=== PATIENT | female | born 1960 | race Caucasian/White ===

== ENCOUNTER 2019-04-21 16:19 | Emergency (ER) | payer SELFPAY ==
[2019-04-21] MEDS ORDERED: METHYLPREDNISOLONE 125 MG INJ ONE (17:26)
[2019-04-21] MEDS ORDERED: LEVALBUTEROL 1.25 MG/3 ML NEB ONE (17:26)
[2019-04-21] MEDS ORDERED: MAGNESIUM SULFATE 1 gm IVPB 1 GM/100 ML BAG IV ONE (17:26)
--- NOTE | 2019-04-21 18:42 | RAD REPORT ---
EXAM DESCRIPTION: [place] Single View04/21/2019 5:15 pm CLINICAL HISTORY: sob COMPARISON: none FINDINGS: Mild to moderate bilateral interstitial lung opacities suspected. Lungs are hyperaerated Small calcified granulomas are suspected. The heart is normal size IMPRESSION: Mild to moderate bilateral interstitial lung opacities may indicate an atypical pneumoni a or pneumonitis Follow-up chest x-ray would be helpful to assess interval clearing of the lung opacities
--- NOTE | 2019-04-21 18:50 | ER ---
Nurse's Notes [facility] Name: Julianna Holland Age: 59 yrs Sex: Female : 1960 Arrival Date: 04/21/2019 Time: 16:24 Bed 18 Private MD: Diagnosis: Wheezing;Other pneumonia, unspecified organism Presentation: 04/21 16:28 Presenting complaint: SOB, productive cough with yellowish sputum, subjective fever, hb wheezing, chills, fatigue, loss of appetite, body aches, headache x 1 week. Transition of care: patient was not received from another setting of care. Onset of symptoms was April 14, 2019. Risk Assessment: Do you want to hurt yourself or someone else? Patient reports no desire to harm self or others. Care prior to arrival: Medication(s) given: OTC Cold and Flu. 16:28 Method Of Arrival: Ambulatory hb 16:28 Acuity: MORGAN 3 hb 17:00 Initial Sepsis Screen: Does the patient meet any 2 criteria? No. Patient's initial bp sepsis screen is negative. Does the patient have a suspected source of infection? No. Patient's initial sepsis screen is negative. Triage Assessment: 16:35 General: Appears in no apparent distress. comfortable, Behavior is cooperative, bp appropriate for age, anxious. Pain: Denies pain. EENT: Reports nasal congestion. Neuro: No deficits noted. Cardiovascular: No deficits noted. Respiratory: Reports cough that is. GI: No signs and/or symptoms were reported involving the gastrointestinal system. : No signs and/or symptoms were reported regarding the genitourinary system. Derm: No deficits noted. Musculoskeletal: No deficits noted. Historical: - Allergies: 16:32 Codeine; hb 16:32 PENICILLINS; hb - Home Meds: 16:32 unknown HTN medication [Active]; hb - PMHx: 16:32 Hypertension; hb - Immunization history:: Adult Immunizations up to date. - Social history:: Smoking status: Patient uses tobacco products, smokes one-half pack cigarettes per day. - Ebola Screening: : No symptoms or risks identified at this time. - Family history:: not pertinent. - Hospitalizations: : No recent hospitalization is reported. Screenin:40 Abuse screen: Denies threats or abuse. Denies injuries from another. Nutritional bp screening: No deficits noted. Tuberculosis screening: No symptoms or risk factors identified. Fall Risk None identified. Assessment: 16:35 General: SEE TRIAGE NOTE. bp 18:00 Reassessment: ALL CURRENT ORDERS COMPLETED, PT EXPRESSES RELIEF OF S/S. bp 19:08 Reassessment: PT D/C HOME AMBULATORY WITH FAMILY, DX WITH COPD. bp Vital Signs: 16:30 BP 108 / 68; Pulse 106; Resp 24; Temp 97.8; Pulse Ox 95% on R/A; Weight 51.71 kg; hb Height 5 ft. 2 in. (157.48 cm); Pain 8/10; 17:42 BP 164 / 74; Pulse 88; Resp 20; Temp 97.9(O); Pulse Ox 100% ; mh5 19:00 BP 155 / 69; Pulse 85; Resp 20; Temp 97.8; Pulse Ox 96% ; bp 16:30 Body Mass Index 20.85 (51.71 kg, 157.48 cm) hb ED Course: 16:24 Patient arrived in ED. mr 16:30 Triage completed. hb 16:30 Arm band placed on. hb 16:39 Arsenio Resendiz, RN is Primary Nurse. bp 16:40 Patient has correct armband on for positive identification. Bed in low position. Call bp light in reach. Side rails up X2. 16:53 Keenan Negro MD is Attending Physician. rn 17:15 XRAY Chest (1 view) In Process Unspecified. EDMS 17:18 Flu and/or RSV swab sent to lab. mh5 17:18 Flu Sent. mh5 17:20 Inserted saline lock: 20 gauge in right forearm, using aseptic technique. bp 18:48 Wing Young MD is Referral Physician. rn 19:00 No provider procedures requiring assistance completed. IV discontinued, intact, bp bleeding controlled, No redness/swelling at site. Pressure dressing applied. Administered Medications: 17:20 Drug: SOLU-Medrol 125 mg Route: IVP; Site: right forearm; bp 18:12 Follow up: Response: Pain is decreased bp 17:20 Drug: Xopenex (3) 1.25 mg Route: Inhalation; bp 17:20 Drug: Magnesium Sulfate 1 grams Route: IVPB; Infused Over: 1 hrs; Site: right forearm; bp 19:07 Follow up: IV Status: Completed infusion; IV Intake: 100ml bp 18:59 Drug: LevaQUIN 750 mg Route: PO; rr5 19:08 Follow up: Response: Medication administered at discharge. bp Intake: 19:07 IV: 100ml; Total: 100ml. bp Outcome: 18:49 Discharge ordered by . rn 19:09 Discharged to home ambulatory, with family. bp 19:09 Condition: stable 19:09 Discharge instructions given to patient, Instructed on discharge instructions, follow up and referral plans. medication usage, Demonstrated understanding of instructions, follow-up care, medications, Prescriptions given X 3. 19:10 Patient left the ED. bp Signatures: Dispatcher [employer] [facility] Leny MazaKeenan MD MD rn Baxter, Heather, RN RN April Clark [facility] Arsenio Resendiz RN RN Raghu Harris RN RN rr5 Corrections: (The following items were deleted from the chart) 16:32 16:28 Care prior to arrival: Medication(s) given: hb hb 16:33 16:30 BP 108 / 68; Pulse 106bpm; Resp 20bpm; Pulse Ox 96% RA; Temp 97.8F; 51.71 kg; hb Height 5 ft. 2 in.; BMI: 20.8; Pain 8/10; hb
--- NOTE | 2019-04-21 18:50 | EDPHYS ---
Physician Documentation [facility] Name: Julianna Holland Age: 59 yrs Sex: Female : 1960 Arrival Date: 04/21/2019 Time: 16:24 Bed 18 Private MD: ED Physician Keenan Negro HPI: 04/21 18:40 This 59 yrs old Female presents to ER via Ambulatory with complaints of Flu rn Symptoms. 18:40 The patient or guardian reports cough. Onset: The symptoms/episode began/occurred 2 rn day(s) ago. Severity of symptoms: At their worst the symptoms were mild, in the emergency department the symptoms are unchanged. Modifying factors: The symptoms are alleviated by nothing, the symptoms are aggravated by exertion. The patient has not experienced similar symptoms in the past. Reports flu like symptoms, cough, has been smoking for decades, still smokes, no trauma, reports fever/chills/hemoptysis. + wheezing and sob. Denies hx of COPD. Does not use inhalers. . Historical: - Allergies: 16:32 Codeine; hb 16:32 PENICILLINS; hb - Home Meds: 16:32 unknown HTN medication [Active]; hb - PMHx: 16:32 Hypertension; hb - Immunization history:: Adult Immunizations up to date. - Social history:: Smoking status: Patient uses tobacco products, smokes one-half pack cigarettes per day. - Ebola Screening: : No symptoms or risks identified at this time. - Family history:: not pertinent. - Hospitalizations: : No recent hospitalization is reported. ROS: 18:40 Constitutional: + fever and subjective chills Eyes: Negative for injury, pain, redness, rn and discharge, Cardiovascular: Negative for chest pain, palpitations, and edema, Respiratory: + cough and sob Abdomen/GI: + diarrhea MS/Extremity: Negative for injury and deformity, Skin: Negative for injury, rash, and discoloration, Neuro: Negative for headache, numbness, tingling, and seizure. Exam: 18:40 Constitutional: This is a well developed, well nourished patient who is awake, alert, rn and in no acute distress. Head/Face: Normocephalic, atraumatic. ENT: dry MM, no stridor or swelling Cardiovascular: Regular rate and rhythm. No pulse deficits. Respiratory: + mild tachypnea, + faint upper lobe bilateral wheezing Abdomen/GI: soft, non-tender MS/ Extremity: Pulses equal, no cyanosis. Neurovascular intact. Full, normal range of motion. Equal circumference. Neuro: Awake and alert, GCS 15, oriented to person, place, time, and situation. Cranial nerves II-XII grossly intact. Motor strength 5/5 in all extremities. Sensory grossly intact. Cerebellar exam normal. Vital Signs: 16:30 BP 108 / 68; Pulse 106; Resp 24; Temp 97.8; Pulse Ox 95% on R/A; Weight 51.71 kg; hb Height 5 ft. 2 in. (157.48 cm); Pain 8/10; 17:42 BP 164 / 74; Pulse 88; Resp 20; Temp 97.9(O); Pulse Ox 100% ; mh5 19:00 BP 155 / 69; Pulse 85; Resp 20; Temp 97.8; Pulse Ox 96% ; bp 16:30 Body Mass Index 20.85 (51.71 kg, 157.48 cm) hb MDM: 16:53 Patient medically screened. rn 18:40 Differential Diagnosis: Bronchitis Influenza Upper Respiratory Infection Viral Syndrome rn Pneumonia. Data reviewed: vital signs, nurses notes, lab test result(s), radiologic studies, and as a result, I will discharge patient. Test interpretation: by ED physician or midlevel provider: plain radiologic studies, CXR with hyperinflation and interstitial infiltrates.. Counseling: I had a detailed discussion with the patient and/or guardian regarding: the historical points, exam findings, and any diagnostic results supporting the discharge/admit diagnosis, lab results, radiology results, the need for outpatient follow up, to return to the emergency department if symptoms worsen or persist or if there are any questions or concerns that arise at home. Response to treatment: the patient's symptoms have markedly improved after treatment, and as a result, I will discharge patient. Special discussion: I discussed with the patient/guardian in detail that at this point there is no indication for admission to the hospital. It is understood, however, that if the symptoms persist or worsen the patient needs to return immediately for re-evaluation. Based on the history and exam findings, there is no indication for further emergent testing or inpatient evaluation. I discussed with the patient/guardian the need to see the roll forming supervisor for further evaluation of the symptoms. ED course: Patient improved, urged to f/u with pulmonology for pulmonary function testing. Will dc home with steroids/inhaler/zithromax given likely COPD with acute infection.. 04/21 17:09 Order name: Flu; Complete Time: 18:14 rn 04/21 16:53 Order name: XRAY Chest (1 view); Complete Time: 18:49 rn 04/21 17:09 Order name: IV Start; Complete Time: 17:37 rn Administered Medications: 17:20 Drug: SOLU-Medrol 125 mg Route: IVP; Site: right forearm; bp 18:12 Follow up: Response: Pain is decreased bp 17:20 Drug: Xopenex (3) 1.25 mg Route: Inhalation; bp 17:20 Drug: Magnesium Sulfate 1 grams Route: IVPB; Infused Over: 1 hrs; Site: right forearm; bp 19:07 Follow up: IV Status: Completed infusion; IV Intake: 100ml bp 18:59 Drug: LevaQUIN 750 mg Route: PO; rr5 19:08 Follow up: Response: Medication administered at discharge. bp Disposition: 04/21/19 18:49 Discharged to Home. Impression: Wheezing, Other pneumonia, unspecified organism. - Condition is Stable. - Discharge Instructions: Chronic Obstructive Pulmonary Disease, How to Use an Inhaler, Community-Acquired Pneumonia, Adult. - Prescriptions for Levaquin 750 mg Oral Tablet - take 1 tablet by ORAL route once daily for 10 days; 10 tablet. Prednisone 20 mg Oral Tablet - take 3 tablet by ORAL route once daily for 5 days; 15 tablet. Albuterol Sulfate 90 mcg/actuation - inhale 1-2 puff by INHALATION route every 4-6 hours; 1 Inhaler. - Medication Reconciliation Form, Thank You Letter, Antibiotic Education, Prescription Opioid Use form. - Follow up: Wing Young MD; When: As needed; Reason: Recheck today's complaints, Re-evaluation by your physician. - Problem is new. - Symptoms have improved. Signatures: Dispatcher [employer] EDMS Keenan Negro MD MD rn Baxter, Heather, RN RN hb Peltier, Brian, RN RN Raghu Harris RN RN rr5 Corrections: (The following items were deleted from the chart) 18:44 18:40 Constitutional: + fever and subjective chills Eyes: Negative for injury, pain, rn redness, and discharge, Cardiovascular: Negative for chest pain, palpitations, and edema, Respiratory: + cough and sob Abdomen/GI: + diarrhea MS/Extremity: Negative for injury and deformity, Skin: Negative for injury, rash, and discoloration, Neuro: Negative for headache, weakness, numbness, tingling, and seizure, rn 18:50 18:40 Test interpretation: by ED physician or midlevel provider: plain radiologic rn studies, CXR without acute infiltrate/pneumonia, + hyperinflation, rn 18:51 18:49 04/21/2019 18:49 Discharged to Home. Impression: Wheezing. Condition is Stable. rn Forms are Medication Reconciliation Form, Thank You Letter, Antibiotic Education, Prescription Opioid Use. Follow up: Wing Young; When: As needed; Reason: Recheck today's complaints, Re-evaluation by your physician. Problem is new. Symptoms have improved. rn 19:10 18:51 04/21/2019 18:49 Discharged to Home. Impression: Wheezing; Other pneumonia, bp unspecified organism. Condition is Stable. Forms are Medication Reconciliation Form, Thank You Letter, Antibiotic Education, Prescription Opioid Use. Follow up: Wing Young; When: As needed; Reason: Recheck today's complaints, Re-evaluation by your physician. Problem is new. Symptoms have improved. rn
[2019-04-21] MEDS ORDERED: levoFLOXacin 750 MG TAB ONE (18:58)
[2019-04-21 19:52] VITALS: TEMP 97.8
[2019-04-21 20:06] VITALS: BP 155/69; O2SAT 96
== END 2019-04-21 19:10 | disposition home or self-care (01) ==
LOC: ER 16:19
DX: R06.2 Wheezing (principal); J18.9 Pneumonia, unspecified organism; Z88.6 Allergy status to analgesic agent; Z88.0 Allergy status to penicillin; I10 Essential (primary) hypertension; F17.210 Nicotine dependence, cigarettes, uncomplicated
CPT/HCPCS: 71045; 87804; 96365; 96366; 96375; 99284; J2930; J3475